=== PATIENT | female | born 1985 | race Caucasian/White ===

== ENCOUNTER 2017-06-10 14:17 | Emergency (ER) | payer BC, OTHER ==
[2017-06-10] MEDS ORDERED: KETOROLAC TROMETHAMINE INJ/PF 30 MG/1 ML SDV IM ONE (15:10)
--- NOTE | 2017-06-10 15:15 | ER Document Report ---
HPI - HPI Pain Level: 3 Notes: Patient is a 32-year-old female with a history of type 2 diabetes on metformin who presents to the ED complaining of thoracic back pain that will radiate around her sides bilaterally with the left being greater than the right over the last several years. Patient states that her pain has increased over the last couple weeks. Patient denies any known injury. Patient states that truncal movements do increase her pain. Patient has noticed pain in her left upper quadrant to light palpation. She is eating and drinking without any difficulties or changes in symptoms. She is urinating normally and having normal bowel movements. Patient states that occasionally she will have issues with her acid reflux, but has not had any issues recently. Denies any recent illness. Denies any drug allergies. Patient states that her sugars have been well controlled under 130. Denies any injections or surgeries to his back. No IV drug use. No prev h/o spinal abscess. Denies any headache, fever, neck pain , URI, sore throat, chest pain, palpitations, syncope, cough, shortness of breath, wheeze, dyspnea, nausea/vomiting/diarrhea, urinary retention, dysuria, hematuria, loss of control of bowel or bladder, numbness/tingling, saddle anesthesia, muscle paralysis/weakness, or rash. Pt had a neg home prior to arrival. - ROS Systems Reviewed and Negative: Yes All other systems reviewed and negative - REPRODUCTIVE Reproductive: DENIES: : - DERM Skin Color: Normal, [place] Past Medical History - Social History Smoking Status: Never Smoker Chew tobacco use (# tins/day): No Frequency of alcohol use: None Drug Abuse: None Family History: Reviewed & Not Pertinent Patient has suicidal ideation: No Patient has homicidal ideation: No Endocrine Medical History: Reports: Hx Diabetes Mellitus Type 2 - "pre" Renal/ Medical History: Denies: Hx Peritoneal Dialysis Past Surgical History: Reports: Hx Cholecystectomy, Hx Tonsillectomy - Immunizations Hx Diphtheria, Pertussis, Tetanus Vaccination: Yes Vertical Provider Document - CONSTITUTIONAL Agree With Documented VS: Yes Notes: PHYSICAL EXAMINATION: GENERAL: Well-appearing, well-nourished and in no acute distress. moves comfortably. LUNGS: Breath sounds clear to auscultation bilaterally and equal. No wheezes rales or rhonchi. HEART: Regular rate and rhythm without murmurs, rubs, gallops. ABDOMEN: Soft, nondistended abdomen. No guarding, no rebound. No masses appreciated. Normal bowel sounds present. No CVA tenderness bilaterally. No pulsatile mass. + mild tenderness to light palp along the left lower ribs w/o deformity, erythema, ecchymosis, or step-offs. No hernia. Musculoskeletal: LE's b/l: FROM to passive/active. Strength 5+/5. No deficits noted. No bony tenderness of extremities. Back: FROM to passive/active. Strength 5+/5. No vertebral point tenderness, stepoffs, or deformities. No other bony tenderness, erythema, swelling, or ecchymosis. SLR negative b/l. + mild tenderness to the T-paraspinal mm b/l. Mild spasming. No SI jt tenderness. No foot drop Extremities: No cyanosis, clubbing, or edema b/l. Peripheral pulses 2+. Capillary refill less than 2 seconds. NEUROLOGICAL: Normal speech, normal gait. Normal sensory, motor exams. Reflexes 2+ b/l. PSYCH: Normal mood, normal affect. SKIN: Warm, Dry, normal turgor, no rashes or lesions noted. - INFECTION CONTROL TRAVEL OUTSIDE OF THE [place] IN LAST 30 DAYS: No Course - Re-evaluation Re-evalutation: 06/10/17 17:48 Patient is an afebrile, well-hydrated, 32-year-old female who presents to the ED with thoracic back pain, LUQ pain which I believe is actually from her back/ inflammatory musculoskeletal, and elevated blood glucose based on H&P today. Vitals are stable. PE is otherwise unremarkable. Urinalysis was unremarkable for any acute pathology aside from glucose. Accu-Chek was at 210. No other labs or imaging warranted at this time based on H&P. Patient is not having any signs or symptoms of DKA. Low suspicion for any dehydration, DKA, meningitis, fracture, expanding/ruptured AAA, cauda equina syndrome, epidural mass lesion/ abscess, herniated disc causing severe spinal stenosis, or other systemic infection at this time. Patient is aware that her condition can change from initial presentation and that she needs monitor symptoms closely for any acute changes. Patient was given Toradol today. I will send her home with a prescription for naproxen, baclofen, and metformin. Patient states that she ran out of her metformin 2 days ago. Conservative measures otherwise for symptoms. Recheck with your PCM in 3-5 days. Consider consult orthopedics and physical therapy for ongoing/worsening symptoms. Return to the ED with any worsening/concerning symptoms otherwise as reviewed discharge. Patient is in agreement. Discharge - Discharge Clinical Impression: Elevated glucose level Thoracic back pain Qualifiers: Chronicity: acute Back pain laterality: bilateral Qualified Code(s): M54.6 - Pain in thoracic spine Condition: Stable Disposition: HOME, SELF-CARE Additional Instructions: Rest, Ice, Compression Tylenol/ibuprofen as needed Light stretches daily Strength exercises as able Healthy low carb/sugar diet. Monitor glucose twice daily and keep a log. Take meds as directed Moist heat and massage may help F/u with your PCP in 3-5 days for a recheck Consider consult(s) with Orthopedics/physical therapy for ongoing/worsening symptoms Return to the ED with any worsening symptoms and/or development of fever, headache, chest pain, palpitations, syncope, shortness of breath, trouble breathing, abdominal pain, n/v/d, muscle weakness/paralysis, numbness/tingling, swelling, redness, or other worsening symptoms that are concerning to you. Prescriptions: Baclofen [Baclofen 10 mg Tablet] 5 - 10 mg PO BID PRN #10 tablet PRN Reason: Metformin HCl [Glucophage 500 mg Tablet] 500 mg PO BID #10 tablet Naproxen 500 mg PO BID PRN #30 tablet PRN Reason: Referrals: [facility] [Provider Group] - Follow up as needed
--- NOTE | 2017-06-10 15:39 | RADIOLOGY REPORT (SQ) ---
EXAM DESCRIPTION: T SPINE AP/LAT COMPLETED DATE/TIME: 06/10/2017 3:27 pm REASON FOR STUDY: thoracic pain approx T8 area COMPARISON: None. NUMBER OF VIEWS: Two views. TECHNIQUE: AP and lateral radiographic images acquired of the thoracic spine. LIMITATIONS: None. FINDINGS: MINERALIZATION: Normal. ALIGNMENT: Normal. No scoliosis. VERTEBRAE: No fracture or bone lesion. Maintained height, normal segmentation. DISCS: No significant loss of height or significant narrowing. No large osteophytes. HARDWARE: None in the spine. MEDIASTINUM AND SOFT TISSUES: Normal heart size and aortic contour. No soft tissue abnormality. VISUALIZED LUNG SOSA: Clear. OTHER: No other significant finding. IMPRESSION: NO SIGNIFICANT RADIOGRAPHIC FINDING IN THE THORACIC SPINE. TECHNICAL DOCUMENTATION: JOB ID: [id number] [employer]- All Rights Reserved
[2017-06-10 17:10] LABS: APPEARANCE,URINE SLIGHTLY-CLOUDY; BILIRUBIN,URINE NEGATIVE (NEGATIVE); COLOR,URINE YELLOW; GLUCOSE, URINE >=500 mg/dL (NEGATIVE); KETONES,URINE NEGATIVE (NEGATIVE); LEUKOCYTE ESTERASE,URINE NEGATIVE (NEGATIVE); NITRITE,URINE NEGATIVE (NEGATIVE); PROTEIN,URINE NEGATIVE (NEGATIVE); URINE SPECIFIC GRAVITY 1.032; UROBILINOGEN,URINE NEGATIVE mg/dL (<2.0)
[2017-06-10 17:49] VITALS: BP 132/82
== END 2017-06-10 17:49 | disposition home or self-care (01) ==
LOC: ER 14:17
DX: M54.6 Pain in thoracic spine (principal); R10.12 Left upper quadrant pain; E11.9 Type 2 diabetes mellitus without complications; Z79.84 Long term (current) use of oral hypoglycemic drugs; Z90.49 Acquired absence of other specified parts of digestive tract
CPT/HCPCS: 99283; 87086; 82962; 87088; 81001; 72070; J1885

== ENCOUNTER 2018-10-30 20:51 | Emergency (ER) | payer OTHER ==
[2018-10-31] MEDS ORDERED: PANTOPRAZOLE SODIUM 40 MG VIAL IV ONE (01:27)
[2018-10-31 02:39] LABS: APPEARANCE,URINE CLEAR; BILIRUBIN,URINE NEGATIVE (NEGATIVE); KETONES,URINE NEGATIVE (NEGATIVE); LEUKOCYTE ESTERASE,URINE NEGATIVE (NEGATIVE); NITRITE,URINE NEGATIVE (NEGATIVE); PROTEIN,URINE NEGATIVE (NEGATIVE); UROBILINOGEN,URINE NEGATIVE mg/dL (<2.0)
[2018-10-31 02:44] LABS: ABSOLUTE BASOPHILS # (AUTO) 0.1 10^3/uL (0.0-0.2); ABSOLUTE EOSINOPHILS # (AUTO) 0.2 10^3/uL (0.0-0.6); ABSOLUTE MONOCYTES (AUTO) 0.6 10^3/uL (0.1-1.4); ABSOLUTE NEUT (AUTO) 3.3 10^3/uL (1.7-8.2); BASOPHILS % (AUTO) 0.9 % (0-2); EOSINOPHILS % (AUTO) 2.7 % (0-6); HEMOGLOBIN 13.3 g/dL (12.0-15.5); LYMPHOCYTES % (AUTO) 48.5 % (13-45); MEAN CORPUSCULAR HEMOGLOBIN 31.3 pg (27.0-33.4); MEAN CORPUSCULAR VOLUME 90 fl (80-97); MONOCYTES % (AUTO) 7.3 % (3-13); PLATELET COUNT 217 10^3/uL (150-450); RED BLOOD COUNT 4.24 10^6/uL (3.72-5.28); RED CELL DISTRIBUTION WIDTH 12.1 % (11.5-14.0); SEGMENTED NEUTROPHILS % (AUTO) 40.6 % (42-78); TOTAL CELLS COUNTED % (AUTO) 100 %; WHITE BLOOD COUNT 8.2 10^3/uL (4.0-10.5)
[2018-10-31 02:50] LABS: ALANINE AMINOTRANSFERASE 23 U/L (9-52); ALKALINE PHOSPHATASE 42 U/L (38-126); ANION GAP 12 (5-19); ASPARTATE AMINO TRANSFERASE 20 U/L (14-36); BILIRUBIN,DIRECT 0.2 mg/dL (0.0-0.4); BILIRUBIN,TOTAL 1.1 mg/dL (0.2-1.3); BLOOD UREA NITROGEN 9 mg/dL (7-20); CALCIUM 9.6 mg/dL (8.4-10.2); CARBON DIOXIDE 23 mmol/L (22-30); CHLORIDE 103 mmol/L (98-107); GLUCOSE 140 mg/dL (75-110); LIPASE 56.2 U/L (23-300); POTASSIUM 4.1 mmol/L (3.6-5.0); SODIUM 137.9 mmol/L (137-145); TOTAL PROTEIN 7.1 g/dL (6.3-8.2)
--- NOTE | 2018-10-31 02:51 | ER Document Report ---
ED GI/ - General Chief Complaint: Abdominal Pain Stated Complaint: ABDOMINAL PAIN Time Seen by Provider: 10/31/18 00:33 Primary Care Provider: MARIA GUADALUPE SANDERS MD [ACTIVE STAFF] - Follow up as needed TAVO SOMMERS PA-C [Primary Care Provider] - Follow up as needed Mode of Arrival: Ambulatory Information source: Patient TRAVEL OUTSIDE OF THE [place] IN LAST 30 DAYS: No - HPI Patient complains to provider of: Abdominal pain Onset: Other - Chronic abdominal pain for the past 3 years. Quality of pain: Dull Severity at maximum: Mild Severity in ED: Mild Pain Level: 1 Context: Other - Chronic abdominal pain Location: LUQ Vaginal bleeding (Compared to normal period): None Associated symptoms: None Exacerbated by: Denies Relieved by: Denies Similar symptoms previously: Yes Recently seen / treated by doctor: No - Related Data Allergies/Adverse Reactions: No Known Allergies Allergy (Verified 06/10/17 14:58) Past Medical History - Social History Smoking Status: Unknown if Ever Smoked Family History: Reviewed & Not Pertinent Endocrine Medical History: Reports: Hx Diabetes Mellitus Type 2 - "pre" Renal/ Medical History: Denies: Hx Peritoneal Dialysis Past Surgical History: Reports: Hx Cholecystectomy, Hx Tonsillectomy - Immunizations Hx Diphtheria, Pertussis, Tetanus Vaccination: Yes Review of Systems - Review of Systems Constitutional: No symptoms reported EENT: No symptoms reported Cardiovascular: No symptoms reported Respiratory: No symptoms reported Gastrointestinal: Abdominal pain, Nausea, Vomiting Genitourinary: No symptoms reported Female Genitourinary: No symptoms reported Musculoskeletal: No symptoms reported Skin: No symptoms reported Hematologic/Lymphatic: No symptoms reported Neurological/Psychological: No symptoms reported Physical Exam - Vital signs Vitals: Temp Pulse Resp BP Pulse Ox 98.1 F 85 20 141/82 H 99 10/30/18 22:15 10/30/18 22:15 10/30/18 22:15 10/30/18 22:15 10/30/18 22:15 Interpretation: Normal - General General appearance: Appears well, Alert - HEENT Head: Normocephalic, Atraumatic Eyes: Normal Pupils: PERRL - Respiratory Respiratory status: No respiratory distress Chest status: Nontender Breath sounds: Normal Chest palpation: Normal - Cardiovascular Rhythm: Regular Heart sounds: Normal auscultation Murmur: No - Abdominal Inspection: Normal Distension: No distension Bowel sounds: Normal Tenderness: Nontender Organomegaly: No organomegaly - Back Back: Normal, Nontender - Extremities General upper extremity: Normal inspection, Nontender, Normal color, Normal ROM, Normal temperature General lower extremity: Normal inspection, Nontender, Normal color, Normal ROM, Normal temperature, Normal weight bearing. No: Toño's sign - Neurological Neuro grossly intact: Yes Cognition: Normal Orientation: AAOx4 [place] Coma Scale Eye Opening: Spontaneous [place] Coma Scale Verbal: Oriented [place] Coma Scale Motor: Obeys Commands [place] Coma Scale Total: 15 Speech: Normal Motor strength normal: LUE, RUE, LLE, RLE Sensory: Normal - Psychological Associated symptoms: Normal affect, Normal mood - Skin Skin Temperature: Warm Skin Moisture: Dry Skin Color: Normal Course - Vital Signs Vital signs: Temp Pulse Resp BP Pulse Ox 98.1 F 85 20 141/82 H 99 10/30/18 22:15 10/30/18 22:15 10/30/18 22:15 10/30/18 22:15 10/30/18 22:15 - Laboratory Result Diagrams: 10/31/18 01:53 10/31/18 01:53 Laboratory results interpreted by me: 10/31/18 10/31/18 10/31/18 01:53 01:53 01:53 Seg Neutrophils % 40.6 L Lymphocytes % 48.5 H Creatinine 0.49 L Glucose 140 H Urine Glucose (UA) 500 H Discharge - Discharge Clinical Impression: Abdominal pain, chronic, left upper quadrant GERD (gastroesophageal reflux disease) Qualifiers: Esophagitis presence: esophagitis presence not specified Qualified Code(s): K21.9 - Gastro-esophageal reflux disease without esophagitis Condition: Stable Disposition: HOME, SELF-CARE Instructions: Abdominal Pain ([facility]), Reflux Disease (GERD) ([facility]) Additional Instructions: Please follow-up with the F[facility]ter Friday morning. Return to the emergency room if her condition worsens. Prescriptions: Ondansetron [Zofran Odt 4 mg Tablet] 4 mg PO Q4HP PRN #30 tab.rapdis PRN Reason: Esomeprazole Magnesium [Nexium 24Hr] 20 mg PO DAILY #30 capsule.dr Referrals: TAVO SOMMERS PA-C [Primary Care Provider] - Follow up as needed MARIA GUADALUPE SANDERS MD [ACTIVE STAFF] - Follow up as needed
[2018-10-31 03:02] LABS: COLOR,URINE DARK YELLOW; GLUCOSE, URINE 500 mg/dL (NEGATIVE); URINE SPECIFIC GRAVITY 1.036
[2018-10-31 04:33] VITALS: BP 125/72
== END 2018-10-31 03:49 | disposition home or self-care (01) ==
LOC: ER 20:51
DX: R10.12 Left upper quadrant pain (principal); G89.29 Other chronic pain; R11.2 Nausea with vomiting, unspecified; Z90.49 Acquired absence of other specified parts of digestive tract
CPT/HCPCS: 99284; 96374; 36415; 83690; 85025; 81025; 80053; 81001; S0164

== ENCOUNTER → 2019-03-07 | Emergency (ER) | payer BC, OTHER ==
[~2019-03-07] MED LIST: ACETAMINOPHEN 325 MG TABLET PO ONE; METOCLOPRAMIDE HCL INJ/PF 10 MG/2 ML SDV IV ONE; MORPHINE SULFATE 10 MG/ML INJ IV ONE; NORMAL SALINE 1000 ML 1,000 ML IV ONE; ONDANSETRON HCL INJ/PF 4 MG/2 ML SDV IV ONE; ONDANSETRON HCL INJ/PF 4 MG/2 ML SDV ONE; PIPERACILLIN/TAZOBACTAM 3.375 GM VIAL IV ONE; RINGERS SOLUTION,LACTATED 1,000 ML IV PRN; VANCOMYCIN HCL INJ 1000 MG VIAL IV ONE
--- NOTE | 2019-03-07 12:51 | ER Document Report ---
ED Medical Screen (RME) - General Chief Complaint: Shortness Of Breath Stated Complaint: SHORTNESS OF BREATH Time Seen by Provider: 03/07/19 12:45 Primary Care Provider: TAVO SOMMERS PA-C [Primary Care Provider] - Follow up as needed Notes: Patient reports having smart Lipo performed on 02/22/2019. Patient states her abdomen is been red for the past few days and then yesterday she noticed a darkened area to more of the incision sites. Patient reports chills. Patient has been taking Motrin as prescribed for her pain relief. I have greeted and performed a rapid initial assessment of this patient. A comp rehensive ED assessment and evaluation of the patient, analysis of test results and completion of the medical decision making process will be conducted by additional ED providers. TRAVEL OUTSIDE OF THE [place] IN LAST 30 DAYS: No - Related Data Allergies/Adverse Reactions: No Known Allergies Allergy (Verified 06/10/17 14:58) Past Medical History Endocrine Medical History: Reports: Hx Diabetes Mellitus Type 2 - "pre" Renal/ Medical History: Denies: Hx Peritoneal Dialysis Past Surgical History: Reports: Hx Cholecystectomy, Hx Tonsillectomy - Immunizations Hx Diphtheria, Pertussis, Tetanus Vaccination: Yes Physical Exam - Vital signs Vitals: Temp Pulse Resp BP Pulse Ox 98.7 F 119 H 18 146/89 H 100 03/07/19 12:39 03/07/19 12:39 03/07/19 12:39 03/07/19 12:39 03/07/19 12:39 - General General appearance: Alert Notes: Extensive erythema to lower abdomen with darkened area to left lower abdomen worrisome for abscess Course - Vital Signs Vital signs: Temp Pulse Resp BP Pulse Ox 98.7 F 119 H 18 146/89 H 100 03/07/19 12:39 03/07/19 12:39 03/07/19 12:39 03/07/19 12:39 03/07/19 12:39 Doctor's Discharge - Discharge Referrals: TAVO SOMMERS PA-C [Primary Care Provider] - Follow up as needed
[2019-03-07 13:26] LABS: VENOUS BLOOD HCO3 21.1 mmol/L (20-32); VENOUS BLOOD PCO2 30.8 mmHg (35-63); VENOUS BLOOD PH 7.45 (7.30-7.42)
[2019-03-07 13:27] LABS: ABSOLUTE BASOPHILS # (AUTO) 0.1 10^3/uL (0.0-0.2); ABSOLUTE EOSINOPHILS # (AUTO) 0.1 10^3/uL (0.0-0.6); ABSOLUTE LYMPHOCYTES (AUTO) 1.6 10^3/uL (0.5-4.7); ABSOLUTE MONOCYTES (AUTO) 0.8 10^3/uL (0.1-1.4); ABSOLUTE NEUT (AUTO) 7.3 10^3/uL (1.7-8.2); BASOPHILS % (AUTO) 0.5 % (0-2); EOSINOPHILS % (AUTO) 0.8 % (0-6); HEMATOCRIT 34.8 % (36.0-47.0); LYMPHOCYTES % (AUTO) 16.5 % (13-45); MEAN CORPUSCULAR HEMOGLOBIN 30.6 pg (27.0-33.4); MEAN CORPUSCULAR HGB CONC 34.4 g/dL (32.0-36.0); MEAN CORPUSCULAR VOLUME 89 fl (80-97); MONOCYTES % (AUTO) 8.1 % (3-13); PLATELET COUNT 331 10^3/uL (150-450); RED BLOOD COUNT 3.92 10^6/uL (3.72-5.28); RED CELL DISTRIBUTION WIDTH 12.1 % (11.5-14.0); SEGMENTED NEUTROPHILS % (AUTO) 74.1 % (42-78); TOTAL CELLS COUNTED % (AUTO) 100 %; WHITE BLOOD COUNT 9.8 10^3/uL (4.0-10.5)
[2019-03-07 13:42] LABS: ALBUMIN 3.7 g/dL (3.5-5.0); ALKALINE PHOSPHATASE 68 U/L (38-126); ANION GAP 13 (5-19); ASPARTATE AMINO TRANSFERASE 20 U/L (14-36); BILIRUBIN,DIRECT 0.2 mg/dL (0.0-0.4); BLOOD UREA NITROGEN 9 mg/dL (7-20); CALCIUM 9.8 mg/dL (8.4-10.2); CARBON DIOXIDE 22 mmol/L (22-30); CHLORIDE 102 mmol/L (98-107); GLUCOSE 322 mg/dL (75-110); TOTAL PROTEIN 7.5 g/dL (6.3-8.2)
--- NOTE | 2019-03-07 14:19 | RADIOLOGY REPORT (SQ) ---
EXAM DESCRIPTION: CHEST 2 VIEWS COMPLETED DATE/TIME: 03/07/2019 2:10 pm REASON FOR STUDY: sob COMPARISON: 06/15/2011 EXAM PARAMETERS: NUMBER OF VIEWS: two views TECHNIQUE: Digital Frontal and Lateral radiographic views of the chest acquired. RADIATION DOSE: NA LIMITATIONS: none FINDINGS: LUNGS AND PLEURA: No opacities, masses or pneumothorax. No pleural effusion. MEDIASTINUM AND HILAR STRUCTURES: No masses or contour abnormalities. HEART AND VASCULAR STRUCTURES: Heart normal size. No evidence for failure. BONES: No acute findings. HARDWARE: None in the chest. OTHER: No other significant finding. IMPRESSION: NO ACUTE RADIOGRAPHIC FINDING IN THE CHEST. TECHNICAL DOCUMENTATION: JOB ID: [id number] [employer]- All Rights Reserved Reading location - IP/workstation name: [email or web address]
--- NOTE | 2019-03-07 14:23 | RADIOLOGY REPORT (SQ) ---
EXAM DESCRIPTION: U/S ABDOMEN LIMITED W/O DOP U/S SOFT TISSUES COMPLETED DATE/TIME: 03/07/2019 2:00 pm REASON FOR STUDY: hx lipo, cellulitis, ?abscess COMPARISON: None. TECHNIQUE: Dynamic and static grayscale images acquired of the localized site of clinical concern an d recorded on PACS. Additional selected color Doppler and spectral images recorded. SITE OF CONCERN: Abdominal wall. LIMITATIONS: None. FINDINGS: SKIN AND SUBCUTANEOUS TISSUES: There are findings consistent with soft tissue edema consis tent with cellulitis. No soft tissue abscess identified. DEEP SOFT TISSUES/MUSCLES: No masses. No fluid collections. No edema. VASCULAR: No increased or decreased vascularity. No occlusions. OTHER: No other significant finding. IMPRESSION: Soft tissue cellulitis. TECHNICAL DOCUMENTATION: JOB ID: [id number] 2010 [employer]- All Rights Reserved Reading location - IP/workstation name: [email or web address]
--- NOTE | 2019-03-07 18:51 | RADIOLOGY REPORT (SQ) ---
EXAM DESCRIPTION: CT ABD/PELVIS WITH IV ONLY; CTA CHEST COMPLETED DATE/TIME: 03/07/2019 6:07 pm REASON FOR STUDY: Recent lipo, concern for abscess; recent surgery, CP, SOB CONTRAST TYPE AND DOSE: contrast/concentration: Isovue 350.00 mg/ml; Total Contrast Delivered: 92.0 ml; Total Saline Delivered: 68.0 ml RENAL FUNCTION: Creatinine: 0.5. COMPARISON: None. TECHNIQUE: CT scan of the chest performed using helical scanning technique with dynamic intravenous contrast injection. Images reviewed with lung, soft tissue and bone windows. Reconstructed coronal a nd sagittal MPR images reviewed. All images stored on PACS. All CT scanners at this facility use dose modulation, iterative reconstruction, and/or weight based d osing when appropriate to reduce radiation dose to as low as reasonably achievable (ALARA). [facility]: Dose Right [facility]: CareDose [facility]: Dose Right [facility]: Teradose 4D [facility]: Peak Rx #2 RADIATION DOSE: CT Rad equipment meets quality standard of care and radiation dose reduction techniq ues were employed. CTDIvol: 13.2 - 32.1 mGy. DLP: 3795 mGy-cm.. LIMITATIONS: None. FINDINGS: AXILLAE: No adenopathy. CHEST WALL: No masses. No subcutaneous air. LUNGS: No nodules or masses. No pneumothorax. No infiltrates. PLEURA: No effusions. No calcifications. THYROID: No masses or significant asymmetry. HILAR AND MEDIASTINAL STRUCTURES: No identified masses or abnormal nodes. AORTA AND GREAT VESSELS: No aneurysm. No dissection. PULMONARY ARTERIES: No identified pulmonary embol in main pulmonary arteries. Distally less optimal opacification to evaluate for pulmonary embolus. HEART: No pericardial effusion. HARDWARE AND LIFELINES: None. BONES: No significant finding. IMPRESSION: NORMAL CT OF THE CHEST WITH IV CONTRAST. COMPARISON: None. RADIATION DOSE: CT Rad equipment meets quality standard of care and radiation dose reduction techniq ues were employed. CTDIvol: 13.2 - 32.1 mGy. DLP: 3795 mGy-cm.mGy. TECHNIQUE: CT scan of the abdomen and pelvis performed with intravenous and oral contrast using demetrio penny scanning technique with dynamic intravenous contrast injection. Images reviewed with lung, soft tissue and bone windows. Reconstructed coronal and sagittal MPR images reviewed. Delayed images for evaluation of the urinary system also acquired and evaluated. All images stored on PACS. All CT scanners at this facility use dose modulation, iterative reconstruction, and/or weight based d osing when appropriate to reduce radiation dose to as low as reasonably achievable (ALARA). [facility]: Dose Right [facility]: SureCare [facility]: Dose Right [facility]: Teradose 4D [facility]: Peak Rx #2 FINDINGS: LIVER: Normal. . SPLEEN: Normal. PANCREAS: Normal. GALLBLADDER: Status post cholecystectomy. . ADRENAL GLANDS: No significant masses or asymmetry. RIGHT KIDNEY AND URETER: No solid masses. No significant calcification. No hydronephrosis or hydroure ter. LEFT KIDNEY AND URETER: No solid masses. No significant calcification. No hydronephrosis or hydrouret er. AORTA AND VESSELS: No aneurysm. No dissection. Renal arteries, SMA, celiac without stenosis. RETROPERITONEUM: No retroperitoneal adenopathy, hemorrhage or masses. LARGE AND SMALL BOWEL: No dilatation. No masses. No wall thickening. APPENDIX: Normal. ABDOMINAL WALL: Diffuse skin thickening consistent with cellulitis. There is soft tissue inflammator y change in the subcutaneous fat of the abdominal wall with focal pockets of air compatible with post surgical change. In the left lower abdominal wall there is confluent area of inflammatory change, so ft tissue air and fluid which could represent early abscess formation (image number [id number] series 5. Skin thickening is noted. PERITONEAL CAVITY: No free air. No free fluid. No peritoneal implants or masses. PELVIS: Urinary bladder: No abnormality. Uterus: No abnormality. Ovaries: No abnormality. BONES: No significant or acute findings. IMPRESSION: 1. No central pulmonary emboli identified. 2. Diffuse postsurgical changes of the abd ominal wall with focal collection of fluid,air, and inflammatory change within the pannus of the left lower abdomen. An evolving abscess not excluded. Diffuse cellulitis with skin thickening noted. TECHNICAL DOCUMENTATION: JOB ID: [id number] SC-69 Quality ID # [id number]: Final reports with documentation of one or more dose reduction techniques (e.g., Au tomated exposure control, adjustment of the mA and/or kV according to patient size, use of iterative reconstruction technique) 2010 [employer]- All Rights Reserved Reading location - IP/workstation name: [email or web address]
--- NOTE | 2019-03-07 18:51 | RADIOLOGY REPORT (SQ) ---
EXAM DESCRIPTION: CT ABD/PELVIS WITH IV ONLY; CTA CHEST COMPLETED DATE/TIME: 03/07/2019 6:07 pm REASON FOR STUDY: Recent lipo, concern for abscess; recent surgery, CP, SOB CONTRAST TYPE AND DOSE: contrast/concentration: Isovue 350.00 mg/ml; Total Contrast Delivered: 92.0 ml; Total Saline Delivered: 68.0 ml RENAL FUNCTION: Creatinine: 0.5. COMPARISON: None. TECHNIQUE: CT scan of the chest performed using helical scanning technique with dynamic intravenous contrast injection. Images reviewed with lung, soft tissue and bone windows. Reconstructed coronal a nd sagittal MPR images reviewed. All images stored on PACS. All CT scanners at this facility use dose modulation, iterative reconstruction, and/or weight based d osing when appropriate to reduce radiation dose to as low as reasonably achievable (ALARA). [facility]: Dose Right [facility]: CareDose [facility]: Dose Right [facility]: Teradose 4D [facility]: RevoLaze RADIATION DOSE: CT Rad equipment meets quality standard of care and radiation dose reduction techniq ues were employed. CTDIvol: 13.2 - 32.1 mGy. DLP: 3795 mGy-cm.. LIMITATIONS: None. FINDINGS: AXILLAE: No adenopathy. CHEST WALL: No masses. No subcutaneous air. LUNGS: No nodules or masses. No pneumothorax. No infiltrates. PLEURA: No effusions. No calcifications. THYROID: No masses or significant asymmetry. HILAR AND MEDIASTINAL STRUCTURES: No identified masses or abnormal nodes. AORTA AND GREAT VESSELS: No aneurysm. No dissection. PULMONARY ARTERIES: No identified pulmonary embol in main pulmonary arteries. Distally less optimal opacification to evaluate for pulmonary embolus. HEART: No pericardial effusion. HARDWARE AND LIFELINES: None. BONES: No significant finding. IMPRESSION: NORMAL CT OF THE CHEST WITH IV CONTRAST. COMPARISON: None. RADIATION DOSE: CT Rad equipment meets quality standard of care and radiation dose reduction techniq ues were employed. CTDIvol: 13.2 - 32.1 mGy. DLP: 3795 mGy-cm.mGy. TECHNIQUE: CT scan of the abdomen and pelvis performed with intravenous and oral contrast using demetrio penny scanning technique with dynamic intravenous contrast injection. Images reviewed with lung, soft tissue and bone windows. Reconstructed coronal and sagittal MPR images reviewed. Delayed images for evaluation of the urinary system also acquired and evaluated. All images stored on PACS. All CT scanners at this facility use dose modulation, iterative reconstruction, and/or weight based d osing when appropriate to reduce radiation dose to as low as reasonably achievable (ALARA). [facility]: Dose Right [facility]: SureCare [facility]: Dose Right [facility]: Teradose 4D [facility]: RevoLaze FINDINGS: LIVER: Normal. . SPLEEN: Normal. PANCREAS: Normal. GALLBLADDER: Status post cholecystectomy. . ADRENAL GLANDS: No significant masses or asymmetry. RIGHT KIDNEY AND URETER: No solid masses. No significant calcification. No hydronephrosis or hydroure ter. LEFT KIDNEY AND URETER: No solid masses. No significant calcification. No hydronephrosis or hydrouret er. AORTA AND VESSELS: No aneurysm. No dissection. Renal arteries, SMA, celiac without stenosis. RETROPERITONEUM: No retroperitoneal adenopathy, hemorrhage or masses. LARGE AND SMALL BOWEL: No dilatation. No masses. No wall thickening. APPENDIX: Normal. ABDOMINAL WALL: Diffuse skin thickening consistent with cellulitis. There is soft tissue inflammator y change in the subcutaneous fat of the abdominal wall with focal pockets of air compatible with post surgical change. In the left lower abdominal wall there is confluent area of inflammatory change, so ft tissue air and fluid which could represent early abscess formation (image number [id number] series 5. Skin thickening is noted. PERITONEAL CAVITY: No free air. No free fluid. No peritoneal implants or masses. PELVIS: Urinary bladder: No abnormality. Uterus: No abnormality. Ovaries: No abnormality. BONES: No significant or acute findings. IMPRESSION: 1. No central pulmonary emboli identified. 2. Diffuse postsurgical changes of the abd ominal wall with focal collection of fluid,air, and inflammatory change within the pannus of the left lower abdomen. An evolving abscess not excluded. Diffuse cellulitis with skin thickening noted. TECHNICAL DOCUMENTATION: JOB ID: [id number] SC-69 Quality ID # [id number]: Final reports with documentation of one or more dose reduction techniques (e.g., Au tomated exposure control, adjustment of the mA and/or kV according to patient size, use of iterative reconstruction technique) 2010 [employer] - [employer]- All Rights Reserved Reading location - IP/workstation name: [email or web address]
[2019-03-07 21:36] VITALS: BP 129/70
--- NOTE | 2019-03-07 23:21 | EKG REPORT ---
SEVERITY:- BORDERLINE ECG - SINUS TACHYCARDIA BORDERLINE T ABNORMALITIES, INFERIOR LEADS : Confirmed by: Paddy Mc 07-Mar-2019 23:21:06
--- NOTE | 2019-03-09 13:20 | ER Document Report ---
Entered by LINO LINDSEY SCRIBE 03/07/19 1423 Acting as scribe for:KAYLENE MASSEY MD ED General - General Chief Complaint: Lower Abdominal Pain Stated Complaint: SHORTNESS OF BREATH Time Seen by Provider: 03/07/19 12:45 Primary Care Provider: TAVO SOMMERS PA-C [Primary Care Provider] - Follow up as needed Mode of Arrival: Ambulatory Information source: Patient Notes: 34-year-old female who presents to the emergency department today with complaints of lower abdominal pain and redness surrounding the area where she had liposuction performed on February 22. Patient states she has had redness to this area since the procedure but she was told this was "normal." Patient states 2 days ago she began developing chest pain and shortness of breath and the redness around this liposuction area has increased. Patient denies leg swelling. TRAVEL OUTSIDE OF THE [place] IN LAST 30 DAYS: No - Related Data Allergies/Adverse Reactions: No Known Allergies Allergy (Verified 06/10/17 14:58) Home Medications: Metformin Past Medical History - General Information source: Patient - Social History Smoking Status: Unknown if Ever Smoked Cigarette use (# per day): No Frequency of alcohol use: None Drug Abuse: None Lives with: Family Family History: Reviewed & Not Pertinent Patient has suicidal ideation: No Patient has homicidal ideation: No Endocrine Medical History: Reports: Hx Diabetes Mellitus Type 2 - "pre" Past Surgical History: Reports: Hx Abdominal Surgery - smart liposuction, Hx Cholecystectomy, Hx Tonsillectomy - Immunizations Hx Diphtheria, Pertussis, Tetanus Vaccination: Yes Review of Systems - Review of Systems Constitutional: No symptoms reported EENT: No symptoms reported Cardiovascular: See HPI, Chest pain Respiratory: See HPI, Short of breath Gastrointestinal: See HPI, Abdominal pain Genitourinary: No symptoms reported Female Genitourinary: No symptoms reported Musculoskeletal: No symptoms reported Skin: See HPI, Change in color, Lesions Hematologic/Lymphatic: No symptoms reported Neurological/Psychological: No symptoms reported -: Yes All other systems reviewed and negative Physical Exam - Vital signs Vitals: Temp Pulse Resp BP Pulse Ox 98.7 F 119 H 18 146/89 H 100 03/07/19 12:39 03/07/19 12:39 03/07/19 12:39 03/07/19 12:39 03/07/19 12:39 - Notes Notes: Physical Exam: General: Alert, appears uncomfortable. HEENT: Normocephalic. Atraumatic. PERRL. Extraocular movements intact. Oropharynx clear. Neck: Supple. Non-tender. Respiratory: No respiratory distress. Clear and equal breath sounds bilaterally. Cardiovascular: Regular rate and rhythm. Abdominal: Hemorrhagic bullae in the lower pannus with surrounding erythema and induration. Brawny edema of the lower pannus. Hot to the touch. LLQ tenderness with palpation. Back: No gross abnormalities. Extremities: Moves all four extremities. Upper extremities: Normal inspection. Normal ROM. Lower extremities: Normal inspection. No edema. Normal ROM. Neurological: Normal cognition. AAOx4. Normal speech. Psychological: Normal affect. Normal Mood. Skin: see abdomen exam Course - Re-evaluation Re-evalutation: 03/07/19 15:02 Patient had liposuction at outside hospital last week of January. She has been having progressive warmth and pain in her abdomen. Her her abdomen has apparent cellulitis around lower pannus. She also looks to have a possible small abscess in the left lower quadrant. CT abdomen has been ordered. She also has been having intermittent shortness of breath and chest discomfort with no history of heart disease in the past or heart problems. Due to recent surgery and liposuction will perform CT of chest to rule out any pulmonary emboli 03/07/19 19:45 CT chest does not show any evidence of pulmonary emboli. She does have diffuse tissue changes in physical exam consistent with cellulitis. She did develop a fever while in the emergency department. She was provided IV antibiotics. I did discuss the case with her surgeon in [place] by the name of virgil Terrell. Worthing that management this patient could be performed at this hospital. I discussed the case with the on-call hospitalist Dr. Harper who said that this was a post surgical complication and it should be admitted to the surgical team. He declined admission due to he stated hospital policy. At that point, I called the surgeon on-call Dr. Lawrence, he has multiple cases right now and stated that he would not get a consult on the patient for at least 3 to 4 hours. Pending admission at this time 03/07/19 20:42 We discussed case with Dr. Terrell in [place]. Transfer center working on consulting hospitalist for transfer to [facility] in [place]. 03/07/19 21:02 Patient accepted to [facility] by Dr. Hernández who is with general surgery. - Vital Signs Vital signs: Temp Pulse Resp BP Pulse Ox 98.7 F 112 H 18 129/70 H 97 03/07/19 21:12 03/07/19 21:12 03/07/19 21:12 03/07/19 21:12 03/07/19 21:12 - Laboratory Result Diagrams: 03/07/19 13:04 03/07/19 13:04 Laboratory results interpreted by me: 03/07/19 03/07/19 03/07/19 13:01 13:04 13:04 Hct 34.8 L VBG pH VBG pCO2 Glucose 322 H POC Glucose 316 H 03/07/19 13:04 Hct VBG pH 7.45 H VBG pCO2 30.8 L Glucose POC Glucose - Diagnostic Test Radiology reviewed: Reports reviewed Discharge - Discharge Clinical Impression: Cellulitis Qualifiers: Site of cellulitis: trunk Site of cellulitis of trunk: abdominal wall Qualified Code(s): L03.311 - Cellulitis of abdominal wall Condition: Good Disposition: FORMERLY [facility], [facility] Referrals: TAVO SOMMERS PA-C [Primary Care Provider] - Follow up as needed I personally performed the services described in the documentation, reviewed and edited the documentation which was dictated to the scribe in my presence, and it accurately records my words and actions.
== END | disposition short-term general hospital (02) ==
LOC: ER 12:34
DX: L03.311 Cellulitis of abdominal wall (principal); R10.30 Lower abdominal pain, unspecified; R10.814 Left lower quadrant abdominal tenderness; R50.9 Fever, unspecified; R07.9 Chest pain, unspecified; R06.02 Shortness of breath; Z98.890 Other specified postprocedural states; R73.03 Prediabetes; Z79.84 Long term (current) use of oral hypoglycemic drugs; Z90.49 Acquired absence of other specified parts of digestive tract
CPT/HCPCS: 93005; 36415; 87040; 82962; 84703; 85025; 80053; 82803; 83605; 71046; 76705; 71275; 74177; 93010; J2765; J2270; J2405; J7030; J7120; J3370; J2543

== ENCOUNTER 2019-04-02 22:57 | Emergency (ER) | payer BC ==
--- NOTE | 2019-04-03 03:13 | ER Document Report ---
ED General - General Chief Complaint: Arm Problem Stated Complaint: RIGHT ARM SWELLING Time Seen by Provider: 04/03/19 01:51 Primary Care Provider: TAVO SOMMERS PA-C [Primary Care Provider] - Follow up as needed TRAVEL OUTSIDE OF THE [place] IN LAST 30 DAYS: No - HPI Onset: Other - over the last several days Onset/Duration: Gradual Quality of pain: Fullness, Pressure, Throbbing Severity: Moderate Pain Level: 3 Context: Patient just has a PIC line pulled from her RUE on Associated symptoms: Chills Exacerbated by: Other - movement of her right arm, palpation of her right arm Relieved by: Denies Similar symptoms previously: No Recently seen / treated by doctor: No Notes: 34 year old female with a history of DM who recently had an abdominal infection after liposuction needing PIC line antibiotics here for pain and swelling of her right arm for the last few days. The patient just had her PIC line removed from her right upper extremity of this week. The patient is having pain in her arm with swelling and some mild chills. The patient is concerned she may have a blood clot. - Related Data Allergies/Adverse Reactions: No Known Allergies Allergy (Verified 04/02/19 22:58) Past Medical History - Social History Smoking Status: Never Smoker Frequency of alcohol use: Social Drug Abuse: None Family History: Reviewed & Not Pertinent Patient has suicidal ideation: No Patient has homicidal ideation: No - Past Medical History Cardiac Medical History: Reports: None Pulmonary Medical History: Reports: None EENT Medical History: Reports: None Neurological Medical History: Reports: None Endocrine Medical History: Reports: Hx Diabetes Mellitus Type 2 - "pre" Renal/ Medical History: Reports: None. Denies: Hx Peritoneal Dialysis Malignancy Medical History: Reports: None GI Medical History: Reports: None Musculoskeletal Medical History: Reports None Psychiatric Medical History: Reports: None Traumatic Medical History: Reports: None Infectious Medical History: Reports: Other - complicated abdominal infection after liposuction Past Surgical History: Reports: Hx Abdominal Surgery - smart liposuction, Hx Cholecystectomy, Hx Tonsillectomy - Immunizations Hx Diphtheria, Pertussis, Tetanus Vaccination: Yes Review of Systems - Review of Systems Constitutional: Chills EENT: No symptoms reported Cardiovascular: No symptoms reported Respiratory: No symptoms reported Gastrointestinal: No symptoms reported Genitourinary: No symptoms reported Female Genitourinary: No symptoms reported Musculoskeletal: Other - right arm pain and swelling Skin: Other - skin irritation on right arm from recent PIC line dressings Hematologic/Lymphatic: No symptoms reported Neurological/Psychological: No symptoms reported Physical Exam - Vital signs Vitals: Temp Pulse Resp BP Pulse Ox 98.2 F 107 H 20 129/68 H 100 04/02/19 23:10 04/02/19 23:10 04/02/19 23:10 04/02/19 23:10 04/02/19 23:10 - Notes Notes: GENERAL: Well-appearing, well-nourished and in no acute distress. HEAD: Atraumatic, normocephalic. EYES: Pupils equal round and reactive to light, extraocular movements intact, sclera anicteric, conjunctiva are normal. ENT: TMs normal, nares patent, oropharynx clear without exudates. Moist mucous membranes. NECK: Normal range of motion, supple without lymphadenopathy or JVD. LUNGS: Breath sounds clear to auscultation bilaterally and equal. No wheezes rales or rhonchi. HEART: Regular rate and rhythm without murmurs, rubs or gallops. ABDOMEN: Soft, nontender, normoactive bowel sounds. No guarding, no rebound. No masses appreciated. EXTREMITIES: Normal range of motion, no pitting or edema. No clubbing or cyano sis. Right upper extremity is slightly swollen and mildly tender with some skin irritation but no sign of cellulitis or abscess. 2+ Radial pulse on right. NEUROLOGICAL: Cranial nerves II through XII grossly intact. Normal speech, normal gait. PSYCH: Normal mood, normal affect. SKIN: Warm, Dry, normal turgor, no rashes or lesions noted. Course - Re-evaluation Re-evalutation: 04/03/19 03:09 The patient just had a PIC line pulled from her right upper extremity and she is here for pain and swelling of her right arm. The patient was told she needs to have an US but she came in the middle of the night an US cannot be performed until the morning. The patient refused to wait until the morning and she said she would go elsewhere for an US. Patient signed out AMA. - Vital Signs Vital signs: Temp Pulse Resp BP Pulse Ox 98.2 F 107 H 20 129/68 H 100 04/02/19 23:11 04/02/19 23:11 04/02/19 23:11 04/02/19 23:11 04/02/19 23:11 Discharge - Discharge Clinical Impression: Arm pain Qualifiers: Laterality: right Qualified Code(s): M79.601 - Pain in right arm Condition: Stable Disposition: AGAINST MEDICAL ADVICE Additional Instructions: You need to have an Ultrasound of of your right arm to rule out a DVT (blood clot). You were offered one here in the ER but you left before it could be performed. Referrals: TAVO SOMMERS PA-C [Primary Care Provider] - Follow up as needed
[2019-04-03 03:19] VITALS: BP 126/76
== END 2019-04-03 03:16 | disposition left against medical advice (07) ==
LOC: ER 22:57
DX: M79.601 Pain in right arm (principal); M79.89 Other specified soft tissue disorders; Z90.49 Acquired absence of other specified parts of digestive tract
CPT/HCPCS: 99283